=== PATIENT | female | born 1975 | race Caucasian/White ===

== ENCOUNTER 2017-07-04 01:58 | Emergency (ER) | payer OTHER ==
[~2017-07-04] VITALS: Ht 165.1 cm; Wt 100.6 kg
[~2017-07-04 01:58] MED LIST: CEFUROXIME500 MG PO; CLONAZEPAM0.5 MG PO; LATUDA60 MG PO; PAXIL10 MG PO; PREDNISONE50 MG PO; ROBITUSSIN AC,T10 ML PO; TOPAMAX100 MG PO; ZITHROMAX TRI-500 MG PO
[2017-07-04 02:58] LABS: HEMATOCRIT 48.4 % (36.0-46.0); HEMOGLOBIN 17.5 G/DL (11.9-15.5); MCH 33.1 PG (29.0-34.0); MCHC 36.2 G/DL (30.0-36.0); MCV 91.5 FL (83-99); PLATELET COUNT 377 K/uL (156-360); RBC DIS.WIDTH-CV 12.3 % (11.8-14.6); RBC DIS.WIDTH-SD 41.2 % (39-53); RED BLOOD COUNT 5.29 M/uL (3.80-5.20); WHITE BLOOD COUNT 8.7 K/uL (4.1-10.2)
[2017-07-04 03:09] LABS: CHLORIDE 101 mEq/L (99-109); SODIUM 135 mEq/L (136-147)
[2017-07-04 03:11] LABS: GLUCOSE 275 mg/dL (70-99)
[2017-07-04 03:14] LABS: CREATININE 0.8 mg/dL (0.6-1.3); GFR ESTIMATE (CALCULATED) > 59 mL/min/; SERUM ETHYL ALCOHOL 167 mg/dL
[2017-07-04 03:15] LABS: UREA NITROGEN (BUN) 7 mg/dL (9-23)
[2017-07-04 03:23] LABS: QUANTITATIVE HCG < 4.0 MIU/ML
[2017-07-04 04:20] LABS: AMPHETAMINE NEGATIVE (500 ng/mL); BARBITURATES NEGATIVE (200 ng/mL); BENZODIAZEPINES NEGATIVE (150 ng/mL); BUPRENORPHINE NEGATIVE (10 ng/mL); COCAINE NEGATIVE (150 ng/mL); METHADONE NEGATIVE (200 ng/mL); METHAMPHETAMINE NEGATIVE (500 ng/mL); OPIATES (MORPHINE) NEGATIVE (100 ng/mL); OXYCODONE NEGATIVE (100 ng/mL); PHENCYCLIDINE NEGATIVE (25 ng/mL); PROPOXYPHENE NEGATIVE (300 ng/mL); THC CANNABINOIDS NEGATIVE (50 ng/mL); TRICYCLIC ANTIDEPRESSANTS NEGATIVE (300 ng/mL)
[2017-07-04] MEDS ORDERED: ATIVAN1 MG PO (06:11)
[2017-07-04 06:24] VITALS: BP 165/80
== END 2017-07-04 06:25 | disposition home or self-care (01) ==
LOC: EME 01:58
DX: F31.9 Bipolar disorder, unspecified (principal); F10.10 Alcohol abuse, uncomplicated; Y90.6 Blood alcohol level of 120-199 mg/100 ml; F17.200 Nicotine dependence, unspecified, uncomplicated
CPT/HCPCS: 80048; 84702; 85027; 90839; 99281; 99285; G0480

== ENCOUNTER → 2017-09-06 | Outpatient (CLI) | payer OTHER ==
[~2017-09-06] MED LIST changes: +ATIVAN1 MG PO
== END | disposition home or self-care (01) ==
LOC: CDC 11:03
DX: R94.31 Abnormal electrocardiogram [ECG] [EKG] (principal); Z79.899 Other long term (current) drug therapy
CPT/HCPCS: 93000

== ENCOUNTER 2017-12-06 03:05 | Emergency (ER) | payer OTHER ==
[~2017-12-06] VITALS: Ht 165.1 cm; Wt 96.3 kg
[2017-12-06] MEDS ORDERED: NORCO 5/3251 TABLET PO (05:30)
[2017-12-06 05:43] VITALS: BP 165/101
== END 2017-12-06 05:44 | disposition home or self-care (01) ==
LOC: EME 03:05
DX: S20.211A Contusion of right front wall of thorax, initial encounter (principal); S40.022A Contusion of left upper arm, initial encounter; S09.90XA Unspecified injury of head, initial encounter; Y04.8XXA Assault by other bodily force, initial encounter; E11.9 Type 2 diabetes mellitus without complications; F41.9 Anxiety disorder, unspecified; E78.5 Hyperlipidemia, unspecified; F32.9 Major depressive disorder, single episode, unspecified; F17.200 Nicotine dependence, unspecified, uncomplicated
CPT/HCPCS: 71046; 71250; 73030; 73060

== ENCOUNTER 2018-01-02 20:54 | Emergency (ER) | payer OTHER ==
[~2018-01-02] VITALS: Ht 165.1 cm; Wt 94.6 kg
[~2018-01-02 20:54] MED LIST changes: +NORCO 5/3251 TABLET PO
[2018-01-02 22:09] LABS: HEMOGLOBIN 16.1 G/DL (11.9-15.5); MCH 32.9 PG (29.0-34.0); MCHC 35.8 G/DL (30.0-36.0); PLATELET COUNT 267 K/uL (156-360); RBC DIS.WIDTH-CV 12.1 % (11.8-14.6); RBC DIS.WIDTH-SD 40.7 % (39-53); RED BLOOD COUNT 4.89 M/uL (3.80-5.20); WHITE BLOOD COUNT 10.5 K/uL (4.1-10.2)
[2018-01-02 22:23] LABS: CHLORIDE 102 mEq/L (99-109); POTASSIUM 3.8 mEq/L (3.7-5.4); SODIUM 135 mEq/L (136-147)
[2018-01-02 22:25] LABS: GLUCOSE 257 mg/dL (70-99)
[2018-01-02 22:28] LABS: SERUM ETHYL ALCOHOL < 10 mg/dL
[2018-01-02 22:29] LABS: CREATININE 0.8 mg/dL (0.6-1.3); GFR ESTIMATE (CALCULATED) > 59 mL/min/
[2018-01-02 22:31] LABS: UREA NITROGEN (BUN) 6 mg/dL (9-23)
[2018-01-02 22:32] LABS: ACETAMINOPHEN (TYLENOL) < 10 mcg/mL (10-30); SALICYLATE < 5.0 MG/DL (15-30)
[2018-01-03 00:59] LABS: AMPHETAMINE NEGATIVE (500 ng/mL); BARBITURATES NEGATIVE (200 ng/mL); BENZODIAZEPINES NEGATIVE (150 ng/mL); COCAINE PRESUMPTIVE POSITIVE (150 ng/mL); METHADONE NEGATIVE (200 ng/mL); METHAMPHETAMINE NEGATIVE (500 ng/mL); OPIATES (MORPHINE) NEGATIVE (100 ng/mL); OXYCODONE PRESUMPTIVE POSITIVE (100 ng/mL); PHENCYCLIDINE NEGATIVE (25 ng/mL); THC CANNABINOIDS NEGATIVE (50 ng/mL); TRICYCLIC ANTIDEPRESSANTS NEGATIVE (300 ng/mL)
[2018-01-03 01:00] LABS: BUPRENORPHINE NEGATIVE (10 ng/mL); PROPOXYPHENE NEGATIVE (300 ng/mL)
[2018-01-03 10:14] VITALS: BP 106/63
== END 2018-01-03 10:15 ==
LOC: EME → EDBD 20:54 → EME 20:54
PROVIDERS: Emergency Medicine
DX: T43.212A Poisoning by selective serotonin and norepinephrine reuptake inhibitors, intentional self-harm, initial encounter (principal); R45.851 Suicidal ideations; F33.2 Major depressive disorder, recurrent severe without psychotic features; Z04.6 Encounter for general psychiatric examination, requested by authority; E78.5 Hyperlipidemia, unspecified; E11.9 Type 2 diabetes mellitus without complications; F41.9 Anxiety disorder, unspecified; F17.200 Nicotine dependence, unspecified, uncomplicated; Z88.1 Allergy status to other antibiotic agents; Z88.8 Allergy status to other drugs, medicaments and biological substances
CPT/HCPCS: 80048; 84702; 84999; 85027; 90837; 93005; 99281; 99285; G0480; J7030